=== PATIENT | male | born 1965 | race Caucasian/White ===

== ENCOUNTER 2018-01-27 20:15 | Emergency (ER) | payer OTHER ==
[~2018-01-27] VITALS: Ht 170.2 cm; Wt 85.3 kg
[~2018-01-27 20:15] MED LIST: LIBRIUM25 MG ORAL
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
[2018-01-27 23:20] VITALS: BP 132/78
[2018-01-28 01:20] VITALS: BP 133/81
--- NOTE | 2018-01-28 04:34 | Emergency Room Report ---
History of Present Illness General Chief Complaint: Pain Source: Patient, EMS Present Illness Allergies: Coded Allergies: No Known Allergies (Unverified , 11/27/15) Nursing Documentation-PMH Hx Hypertension: Yes Hx Diabetes: Yes Hx Seizures: Yes Physical Exam Vital Signs Date Time Temp Pulse Resp B/P (MAP) Pulse Ox O2 Delivery O2 Flow Rate FiO2 01/27/18 20:11 97.4 80 16 134/78 98 Room Air 97.3 Medical Decision Making Diagnostic Impression: Primary Impression: Acute alcoholic intoxication ER Course Please refer to the initial note for the history exam and presentation At approximately 4:00 in the morning Patient has awakened and is asking to be let go Patient cursing at the staff and reports that nothing is being done for him Patient however refused his CAT scan of the head X-ray imaging showed multiple previous rib fractures along with clavicular fracture At this time heart rate appropriate patient does not appear tremulous no signs of acute withdrawal symptoms Patient reports that he is going to leave and drink alcohol and has no plans of stopping drinking alcohol Chest X-Ray Diagnostic Results Chest X-Ray Diagnostic Results : Chest X-Ray Ordered: Yes # of Views/Limited/Complete: 1 View EP Interpretation: Yes Interpretation: no consolidation, no effusion, no pneumothorax, other - Multiple previous rib fractures, clavicular fcture Impression: No acute disease Electronically Signed by: Manuel Stahl DO Last Vital Signs Date Time Temp Pulse Resp B/P (MAP) Pulse Ox O2 Delivery O2 Flow Rate FiO2 01/27/18 20:11 97.4 80 16 134/78 98 Room Air 97.3 Status: improved Disposition: HOME, SELF-CARE Condition: Improved [facility]errals: [facility]ERR[facility] (PCP) Additional Instructions: please return to the ER if you change your mind regarding further care and further evaluation Manuel Stahl DO Jan 28, 2018 04:34
[2018-01-28] MEDS: LORazepam 1mg tab ORAL ONE (04:40)
[2018-01-28 04:45] VITALS: BP 133/81
--- NOTE | 2018-01-28 09:08 | Diagnostic Imaging Report ---
Indication: Shortness of breath Technique: One view of the chest Comparison: none Findings: Multiple old left rib fracture deformities are demonstrated. There is a fracture deformity of the right clavicle. The lungs and pleural spaces are clear. The heart size is upper limits of normal. Impression: No acute process
== END 2018-01-28 04:45 | disposition home or self-care (01) ==
LOC: EDBD 20:15 → EMR 22:36
DX: F10.129 Alcohol abuse with intoxication, unspecified (principal); S20.211A Contusion of right front wall of thorax, initial encounter; V09.9XXA Pedestrian injured in unspecified transport accident, initial encounter; Y92.9 Unspecified place or not applicable; E11.9 Type 2 diabetes mellitus without complications; R41.82 Altered mental status, unspecified; I10 Essential (primary) hypertension
CPT/HCPCS: 71045; 99283

== ENCOUNTER 2018-01-28 16:20 | Emergency (ER) | payer OTHER ==
[~2018-01-28] VITALS: Ht 167.6 cm; Wt 72.6 kg
[2018-01-28 19:30] VITALS: BP 120/80
[2018-01-28 21:45] VITALS: BP 126/81
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
[2018-01-28 23:45] VITALS: BP 118/82
[2018-01-29 01:45] VITALS: BP 122/82
[2018-01-29 02:45] VITALS: BP 122/82
== END 2018-01-29 02:45 | disposition home or self-care (01) ==
LOC: EDBD 16:20 → EMR 17:05
DX: F10.129 Alcohol abuse with intoxication, unspecified (principal); I10 Essential (primary) hypertension; E11.9 Type 2 diabetes mellitus without complications
CPT/HCPCS: 99284

== ENCOUNTER 2018-04-03 17:29 | Emergency (ER) | payer OTHER ==
[~2018-04-03] VITALS: Ht 167.6 cm; Wt 65.8 kg
[2018-04-03 17:57] VITALS: BP 112/70
--- NOTE | 2018-04-03 18:11 | Emergency Room Report ---
History of Present Illness General Chief Complaint: Alcohol Intoxication Source: EMS Present Illness HPI Patient presents with altered mental status Patient was brought in by paramedics report that he has had multiple calls today for being found on the ground by bystanders Upon arrival the patient is minimally arousable Patient is brought with significant material including several large bags There was no reports of vomiting at the scene History of present illness is significantly limited Patient has been here previously with alcohol intoxication Allergies: Coded Allergies: No Known Allergies (Unverified , 11/27/15) Patient History Limited by: medical condition Past Medical History: see triage record Pertinent Family History: unable to obtain Reviewed Nursing Documentation: PMH: Agreed; PSxH: Agreed Nursing Documentation-PMH Hx Hypertension: Yes Hx Diabetes: Yes Hx Seizures: Yes Review of Systems All Other Systems: limited - Other than the ones mentioned in the history of present illness all others are reviewed however they do stay limited due to the patient's mental status Physical Exam Vital Signs Date Time Temp Pulse Resp B/P (MAP) Pulse Ox O2 Delivery O2 Flow Rate FiO2 04/03/18 17:24 98.5 100 16 110/71 98 Room Air 98.4 Sp02 EP Interpretation: reviewed, normal General Appearance: no apparent distress - However fairly somnolent Head: normocephalic, atraumatic Eyes: bilateral eye PERRL ENT: normal pharynx, dry mucus membranes Neck: supple Respiratory: lungs clear Cardiovascular #1: regular rate, rhythm Gastrointestinal: soft, no mass Musculoskeletal: other - Patient does not move extremities to command, unable to obtain full exam he does withdrawn minimally to physical stimuli Neurologic: responsive - Minimally to physical stimuli, airway is appropriate maintaining appropriate gag reflex Skin: other - Appears disheveled Lymphatic: no adenopathy Medical Decision Making Diagnostic Impression: Primary Impression: Acute alcoholic intoxication ER Course Upon arrival patient had order for IV hydration and check of baseline blood work Multiple differentials including but not limited to alcohol intoxication, other metabolic abnormalities considered CT head was negative Pending further blood work evaluation and reevaluation I was told by nursing staff patient had walked out of the emergency room And appears to have eloped prior to final disposition CT/MRI/US Diagnostic Results CT/MRI/US Diagnostic Results : Impression CT head no acute disease Last Vital Signs Date Time Temp Pulse Resp B/P (MAP) Pulse Ox O2 Delivery O2 Flow Rate FiO2 04/03/18 17:57 98.4 97 16 112/70 98 Room Air 98.4 Status: improved Disposition: ELOPED Condition: Unknown Referrals: [facility] (PCP) Manuel Stahl DO Apr 03, 2018 18:11
[2018-04-03 19:30] VITALS: BP 138/89
--- NOTE | 2018-04-04 09:17 | Diagnostic Imaging Report ---
Indication: Altered mental status Technique: Contiguous 5 mm thick transaxial imaging of the head obtained in a Siemens Sensation [address] scanner. Soft tissue and bone windows generated. Automatic Exposure Control was utilized. Total Dose length Product (DLP): 1467.[address] Dose Index Volume (CTDIvol): 70.38 mGy Comparison: 11/26/2015 Findings: There is mild prominence of the ventricles, basal cisterns, and cerebral sulci consistent with atrophy. Mild, nonspecific, white matter hypoattenuation is noted throughout the brain consistent with chronic small vessel disease. There is no midline shift, edema, acute hemorrhage, mass effect, or abnormal extra-axial fluid collections. Bones and extra osseous soft tissues are unremarkable. Impression: No acute intracranial bleed, mass effect or edema. Mild atrophy of the brain. Nonspecific white matter hypoattenuation probably due to chronic small vessel disease. The CT scanner at [facility] is accredited by the [employer] and the scans are performed using dose optimization techniques as appropriate to a performed exam including Automatic Exposure control.
== END 2018-04-03 21:30 | disposition home or self-care (01) ==
LOC: EDBD 17:29 → EMR 17:48
DX: F10.129 Alcohol abuse with intoxication, unspecified (principal); R41.82 Altered mental status, unspecified; E11.9 Type 2 diabetes mellitus without complications; I10 Essential (primary) hypertension; Z86.69 Personal history of other diseases of the nervous system and sense organs
CPT/HCPCS: 70450; 96360; 96372; 96374; 96375; 99284

== ENCOUNTER 2019-01-08 15:34 | Emergency (ER) | payer OTHER ==
[~2019-01-08] VITALS: Ht 172.7 cm; Wt 59.0 kg
[2019-01-08] MEDS ORDERED: UNOBMED (15:41)
[2019-01-08 15:45] VITALS: BP 102/67
[2019-01-08] MEDS ORDERED: Thiamine HCl 100 MG in D5W 55 ML IV ONE (15:45)
--- NOTE | 2019-01-08 15:45 | NUR ---
ED Nurse Note: BROUGHT IN BY [address] DUE TO ETOH WITH BOTTLE OF VODKA. BYSTANDER CALLED 911. DRIED BLOOD NOTED ON NOSE AND MOUTH. STITCHES NOTED ON THE BACK OF PT'S HEAD.
--- NOTE | 2019-01-08 15:52 | Emergency Room Report ---
History of Present Illness General Chief Complaint: Alcohol Intoxication Source: Patient, Medical Record, EMS Present Illness HPI Patient presents via EMS. They were called by concerned citizen's because there is alcohol around imaging is less responsive. He is well-known to them for alcohol abuse. They say when they transported him a couple of days ago he also had evidence of blood from his nose and mouth. They deny knowing of any recent trauma at this time. Patient denies seizure activity. His Accu-Chek in the field was normal. Last time he was here was March with a similar presentation. CT the head was done at that time. Allergies: Coded Allergies: No Known Allergies (Unverified , 11/27/15) Patient History Limited by: medical condition Past Medical History: see triage record, old chart reviewed Social History: Reports: alcohol use Reviewed Nursing Documentation: PMH: Agreed; PSxH: Agreed Nursing Documentation-PMH Past Medical History: No History, Except For Hx Hypertension: Yes Hx Diabetes: Yes Hx Seizures: Yes Review of Systems All Other Systems: limited Physical Exam Vital Signs Date Time Temp Pulse Resp B/P (MAP) Pulse Ox O2 Delivery O2 Flow Rate FiO2 01/08/19 15:39 98.2 90 18 102/60 99 Room Air General Appearance: lethargic - But answers questions, other - Disheveled, Chronically Ill Eyes: bilateral eye PERRL, bilateral eye EOMI, bilateral eye Scleral Injection ENT: moist mucus membranes - Poor dentition no lingual macerations Neck: supple, no bony tend Respiratory: chest non-tender, lungs clear Medical Decision Making Medical: Alcohol Abuse Reaction to Intervention: Other - not coherent and unsteady on feet. Not understand risk of attempting to leave Restraint Reassesment Will use sedation instead of physical restraints. Diagnostic Impression: Primary Impression: Acute alcoholic intoxication Qualified Codes: F10.929 - Alcohol use, unspecified with intoxication, unspecified Additional Impression: Nasal fracture Qualified Codes: S02.2XXA - Fracture of nasal bones, initial encounter for closed fracture ER Course Patient presents with alleged acute alcohol intoxication also has evidence of possible maxillofacial trauma. I differential includes brain bleed, seizures which might be withdrawal, left right imbalance amongst others. Evaluation will be with EKG, CT the head, CT maxillofacial bones and labs. The patient will be treated with IV hydration and thiamine. He's placed on a cardiac nurse specialist. Patient not cooperative and not coherent or steady on feet. 17:40. Sedation ordered. Improved with sedation. Still sleepy. Discussed nasal fracture with patient (not sure if understands). Signed out to Dr. Edwards. Laboratory Tests Test 01/08/19 17:15 01/08/19 21:22 White Blood Count 4.2 K/UL (4.8-10.8) L Red Blood Count 3.86 M/UL (4.70-6.10) L Hemoglobin 10.7 G/DL (14.2-18.0) L Hematocrit 32.9 % (42.0-52.0) L Mean Corpuscular Volume 85 FL (80-99) Mean Corpuscular Hemoglobin 27.7 PG (27.0-31.0) Mean Corpuscular Hemoglobin Concent 32.5 G/DL (32.0-36.0) Red Cell Distribution Width 15.8 % (11.6-14.8) H Platelet Count 195 K/UL (150-450) Mean Platelet Volume 4.7 FL (6.5-10.1) L Neutrophils (%) (Auto) 48.5 % (45.0-75.0) Lymphocytes (%) (Auto) 41.0 % (20.0-45.0) Monocytes (%) (Auto) 6.2 % (1.0-10.0) Eosinophils (%) (Auto) 1.1 % (0.0-3.0) Basophils (%) (Auto) 3.2 % (0.0-2.0) H Sodium Level 138 MMOL/L (136-145) Potassium Level 4.1 MMOL/L (3.5-5.1) Chloride Level 105 MMOL/L (98-107) Carbon Dioxide Level 21 MMOL/L (21-32) Anion Gap 12 mmol/L (5-15) Blood Urea Nitrogen 7 mg/dL (7-18) Creatinine 0.6 MG/DL (0.55-1.30) Estimate Glomerular Filtration Rate > 60 mL/min (>60) Glucose Level 81 MG/DL (74-106) Calcium Level 8.5 MG/DL (8.5-10.1) Magnesium Level 1.6 MG/DL (1.8-2.4) L Total Bilirubin 0.7 MG/DL (0.2-1.0) Aspartate Amino Transferase (AST) 90 U/L (15-37) H Alanine Aminotransferase (ALT) 49 U/L (12-78) Alkaline Phosphatase 158 U/L (46-116) H Total Creatine Kinase 102 U/L (26-308) Total Protein 7.5 G/DL (6.4-8.2) Albumin 3.1 G/DL (3.4-5.0) L Globulin 4.4 g/dL Albumin/Globulin Ratio 0.7 (1.0-2.7) L Lipase 148 U/L (73-393) Salicylates Level < 0.2 ug/mL (2.8-20) L Acetaminophen Level < 2 MCG/ML (10-30) L Serum Alcohol 321 mg/dL Urine Color Pale yellow Urine Appearance Clear Urine pH 7 (4.5-8.0) Urine Specific Bear 1.010 (1.005-1.035) Urine Protein Negative (NEGATIVE) Urine Glucose (UA) Negative (NEGATIVE) Urine Ketones Negative (NEGATIVE) Urine Blood Negative (NEGATIVE) Urine Nitrite Negative (NEGATIVE) Urine Bilirubin Negative (NEGATIVE) Urine Urobilinogen Normal MG/DL (0.0-1.0) Urine Leukocyte Esterase Negative (NEGATIVE) Urine Opiates Screen Negative (NEGATIVE) Urine Barbiturates Screen Negative (NEGATIVE) Phencyclidine (PCP) Screen Negative (NEGATIVE) Urine Amphetamines Screen Negative (NEGATIVE) Urine Benzodiazepines Screen Positive (NEGATIVE) H Urine Cocaine Screen Negative (NEGATIVE) Urine Marijuana (THC) Screen Negative (NEGATIVE) EKG Diagnostic Results Rate: normal Rhythm: NSR ST Segments: no acute changes Rhythm Strip Diag. Results EP Interpretation: yes Rhythm: NSR, no PVC's, no ectopy Chest X-Ray Diagnostic Results Chest X-Ray Diagnostic Results : Chest X-Ray Ordered: Yes # of Views/Limited/Complete: 1 View Indication: Other EP Interpretation: Yes Interpretation: no consolidation, no effusion, no pneumothorax, other - old fractures L Impression: Other Electronically Signed by: Electronically signed by Can Juan MD CT/MRI/US Diagnostic Results CT/MRI/US Diagnostic Results #1: Imaging Test Ordered: Maxillofacial Impression nasal fracture, old right maxillary fracture and left mandible fracture CT/MRI/US Diagnostic Results #2: Imaging Test Ordered: head Impression parietal wound no IC acute pathology Last Vital Signs Date Time Temp Pulse Resp B/P (MAP) Pulse Ox O2 Delivery O2 Flow Rate FiO2 01/09/19 03:30 98.5 69 15 120/78 98 Room Air Status: improved Disposition: HOME, SELF-CARE Condition: Improved Scripts Acetaminophen (Tylenol) 325 Mg Tablet 650 MG ORAL Q6H PRN for Prn Pain/Headache/Temp > 101, #20 TAB 0 Refills Prov: Can Juan MD 01/08/19 Can Juan MD Jan 08, 2019 15:52
--- NOTE | 2019-01-08 16:54 | NUR ---
ED Nurse Note: Multiple RNs attempted to insert IVs. RN unable to establish IV at this time. distribution tech contacted for blood draw.
--- NOTE | 2019-01-08 17:07 | Diagnostic Imaging Report ---
Indication: Chest pain Technique: One view of the chest Comparison: 01/27/2018 Findings: Multiple old left rib fracture deformities and right clavicular fracture deformity again noted. Lungs and pleural spaces are clear. The heart size is upper limits of normal. No significant interim change Impression: No acute process
--- NOTE | 2019-01-08 17:19 | NUR ---
ED Nurse Note: RN attempted to start IV using vein finder, unsuccessful at this time. Dr. Juan notified and aware. costume technician at bedside drawing blood. Security guards at bedside.
--- NOTE | 2019-01-08 17:20 | Diagnostic Imaging Report ---
Indications: Facial trauma, pain Technique: Spiral images obtained through the facial bones. No IV contrast utilized. Multiplanar reconstructions were generated.Total dose length product 1987 mGycm. CTDIvol(s) 70, 28 mGy. Dose reduction achieved using automated exposure control Comparison: none Findings: Surgical hardware is seen reducing old healed fracture of the junction of the right side of the nasal bone and the maxilla. There is a depressed fracture deformity of the nasal bone, acuity of which is indeterminate given the above findings. There is sigmoid deviation of the nasal septum without definite fracture. No other evidence of acute fracture or dislocation. There is minimal bilateral maxillary sinus mucosal thickening. No worrisome maxillary sinus opacification is demonstrated. There is also some mucosal disease involving the ethmoid air cells. There is also surgical hardware seen reducing old healed left mandibular ramus fracture. The optic globes are intact. The visualized intracranial structures are unremarkable. There is evidence of multiple dental caries Impression: Acuity indeterminate fracture of the nasal bone. Correlate with clinical history and findings Evidence of prior surgical repair of the right maxilla and left mandible No other acute bony trauma Fairly extensive dental disease incidentally noted The CT scanner at [facility] is accredited by the [employer] and the scans are performed using protocols designed to limit radiation exposure to as low as reasonably achievable to attain images of sufficient resolution adequate for diagnostic evaluation.
--- NOTE | 2019-01-08 17:20 | NUR ---
ED Nurse Note: ERMD MADE AWARE OF PT NOT HAVING IV ACCESS. PER ERMD THAT IT IS OK TO HAVE NO IV ACCESS. PT IS RESISTING FOR CARE. EDUCATED PT THAT NO CT RESULT YET SO HE IS NOT ABLE TO EAT AT THIS TIME. REINFORCEMENT NEEDED.
--- NOTE | 2019-01-08 17:22 | Diagnostic Imaging Report ---
Indications: Altered mental status, history of trauma, now: Views Technique: Spiral acquisitions obtained through the brain. Angled axial and coronal 5 x 5 mm slices were reconstructed. Total dose length product 1987.82 mGycm. CTDI vol(s) 70.38,28.19 mGy. Dose reduction achieved using automated exposure control Comparison: 04/03/2018 Findings: There is a high midline parietal scalp soft tissue contusion, not evident previously. There is mild prominence of the ventricles and extra axial CSF spaces. No acute intracranial hemorrhage nor edema, mass effect, nor midline shift. Normal edwards-white differentiation. The calvarium is intact. There is minimal ethmoid and sphenoid mucosal thickening. Surgical hardware is seen in the left mandibular neck. Impression: Evidence of high parietal scalp soft tissue trauma Negative for acute intracranial bleed or mass effect Mild cerebral volume loss, out of proportion to age The CT scanner at [facility] is accredited by the [employer] and the scans are performed using protocols designed to limit radiation exposure to as low as reasonably achievable to attain images of sufficient resolution adequate for diagnostic evaluation.
[2019-01-08 17:36] LABS: BASOPHILS % (AUTO) 3.2 % (0.0-2.0); EOSINOPHILS % (AUTO) 1.1 % (0.0-3.0); HEMATOCRIT 32.9 % (42.0-52.0); HEMOGLOBIN 10.7 G/DL (14.2-18.0); MEAN CORPUSCULAR VOLUME 85 FL (80-99); MONOCYTES % (AUTO) 6.2 % (1.0-10.0); NEUTROPHILS % (AUTO) 48.5 % (45.0-75.0); PLATELET COUNT 195 K/UL (150-450); RED BLOOD COUNT 3.86 M/UL (4.70-6.10); RED CELL DISTRIBUTION WIDTH 15.8 % (11.6-14.8); WHITE BLOOD COUNT 4.2 K/UL (4.8-10.8)
[2019-01-08 17:45] VITALS: BP 110/68
[2019-01-08] MEDS ORDERED: DiphenhydrAMINE 50mg/ml Inj IM ONE (17:45)
[2019-01-08] MEDS ORDERED: Haloperidol 5mg/ml Inj IM ONE (17:45)
[2019-01-08 17:47] LABS: ANION GAP 12 mmol/L (5-15); BLOOD UREA NITROGEN 7 mg/dL (7-18); CALCIUM 8.5 MG/DL (8.5-10.1); CARBON DIOXIDE 21 MMOL/L (21-32); CHLORIDE 105 MMOL/L (98-107); CREATININE 0.6 MG/DL (0.55-1.30); POTASSIUM 4.1 MMOL/L (3.5-5.1); SODIUM 138 MMOL/L (136-145)
--- NOTE | 2019-01-08 17:50 | NUR ---
ED Nurse Note: PT RESIST FOR CARE AND BECAME COMBATIVE. ERMD AWARE. SECURITY AT THE BEDSIDE. NEW ORDERS RECEIVED FROM ERMD. WILL FOLLOW UP.
[2019-01-08 17:52] LABS: ALANINE AMINOTRANSFERASE 49 U/L (12-78); ALBUMIN 3.1 G/DL (3.4-5.0); ALBUMIN/GLOBULIN RATIO 0.7 (1.0-2.7); ALKALINE PHOSPHATASE 158 U/L (46-116); ASPARTATE AMINO TRANSFERASE 90 U/L (15-37); BILIRUBIN,TOTAL 0.7 MG/DL (0.2-1.0); CREATINE KINASE 102 U/L (26-308)
[2019-01-08] MEDS ORDERED: Thiamine HCl 100mg/ml 2 ml Inj IM STA (18:22)
--- NOTE | 2019-01-08 18:39 | NUR ---
HAND-OFF: Report given to DUNG WELCH. PT IS SLEEPING IN [facility]
[2019-01-08 19:20] VITALS: BP 111/75
--- NOTE | 2019-01-08 19:57 | NUR ---
HAND-OFF: Report given to DUNG Rodriguez. pt is sleeping in bed in stable condition.
[2019-01-08 21:20] VITALS: BP 115/80
[2019-01-08 21:40] LABS: APPEARANCE,URINE CLEAR; BILIRUBIN, URINE NEGATIVE (NEGATIVE); COLOR,URINE PALE YELLOW; GLUCOSE, URINE (UA) NEGATIVE (NEGATIVE); KETONES,URINE NEGATIVE (NEGATIVE); LEUKOCYTE ESTERASE ,URINE NEGATIVE (NEGATIVE); NITRITE,URINE NEGATIVE (NEGATIVE); PH,URINE 7 (4.5-8.0); PROTEIN,URINE NEGATIVE (NEGATIVE); UROBILINOGEN,URINE NORMAL MG/DL (0.0-1.0)
[2019-01-08] MEDS ORDERED: TYLENOL325 MG ORAL (22:33)
[2019-01-08 22:59] VITALS: BP 120/86
[2019-01-09 00:58] VITALS: BP 121/88
[2019-01-09] MEDS ORDERED: LORazepam 1mg tab ORAL ONE (01:45)
[2019-01-09] MEDS ORDERED: LORazepam Inj 2mg/ml 1ml IM ONE (02:00)
[2019-01-09 02:30] VITALS: BP 118/79
[2019-01-09 03:30] VITALS: BP_SYST 120; BP_DIAS 74; BP_DIAS 78
--- NOTE | 2019-01-09 03:30 | NUR ---
Homeless Discharge: Patient is being discharged from medical care. Awake, alert and oriented x3. After care instructions, including referral to community resources were given. Patient verbalized understanding of After care instructions; at this time patient does not request medications, equipment or placement. Patient signed patient consent in the medical record for patient destination upon discharge. All medical devices such as IV and ID band were removed. Patient ambulated out with all personal belongings with steady gait.
== END 2019-01-09 03:30 | disposition home or self-care (01) ==
LOC: EDBD 15:34 → EMR 16:00
DX: F10.129 Alcohol abuse with intoxication, unspecified (principal); S02.2XXA Fracture of nasal bones, initial encounter for closed fracture; X58.XXXA Exposure to other specified factors, initial encounter; Y92.9 Unspecified place or not applicable; K02.9 Dental caries, unspecified; I10 Essential (primary) hypertension; E11.9 Type 2 diabetes mellitus without complications
CPT/HCPCS: 36415; 70450; 70486; 71045; 80053; 80307; 80329; 81003; 82550; 83690; 83735; 85025; 93005; 96361; 96365; 96372; 99284; J1200; J1630

== ENCOUNTER 2019-10-31 21:06 | Emergency (ER) | payer OTHER ==
[~2019-10-31] VITALS: Ht 180.3 cm; Wt 77.1 kg
[~2019-10-31 21:06] MED LIST changes: +TYLENOL325 MG ORAL; +UNOBMED
--- NOTE | 2019-10-31 21:08 | Emergency Room Report ---
History of Present Illness General Chief Complaint: Alcohol Intoxication Source: EMS Present Illness HPI 54-year-old male history is limited due to current intoxication, patient was outside of a liquor store, he was sleeping in the bushes surrounded by alcohol, patient is refusing to answer questions, Patient attempts to cover himself with blanket. No known start date, no known aggravating or alleviating factors, severity is moderate, constant, characterization is intoxication. Allergies: Coded Allergies: UNABLE TO ASSESS (Unverified , 10/31/19) Patient History Limited by: medical condition - Currently intoxicated Past Medical History: see triage record Reviewed Nursing Documentation: PMH: Agreed; PSxH: Agreed Nursing Documentation-PMH Past Medical History Deferred: Patient Unconscious Past Medical History: Deferred Review of Systems All Other Systems: limited - currently intoxicated Physical Exam Vital Signs Date Time Temp Pulse Resp B/P (MAP) Pulse Ox O2 Delivery O2 Flow Rate FiO2 10/31/19 21:01 97.9 72 22 155/84 (107) 99 Room Air Sp02 EP Interpretation: reviewed, normal General Appearance: no apparent distress, alert Head: normocephalic, atraumatic Eyes: bilateral eye PERRL, bilateral eye EOMI ENT: uvula midline, moist mucus membranes Neck: supple, thyroid normal, supple/symm/no masses Respiratory: lungs clear, no respiratory distress, no retraction, no accessory muscle use Cardiovascular #1: normal peripheral pulses, regular rate, rhythm, no edema, no gallop, no murmur Gastrointestinal: non tender, soft, no guarding, no rebound Musculoskeletal: normal inspection Neurologic: alert, responsive Psychiatric: mood/affect normal Skin: no rash, warm/dry Medical Decision Making Homeless Attestation I, The treating physician Dr. Blackman, have assessed and agrees that patient is medically stable for discharge to an outpatient disposition. Diagnostic Impression: Primary Impression: Acute alcoholic intoxication Qualified Codes: F10.920 - Alcohol use, unspecified with intoxication, uncomplicated ER Course 54-year-old male presents with acute alcohol intoxication, will wait for him to sober, CT scan of the head shows no acute processes Reevaluation 6:03 AM, patient is sober talkative and normal gait CT/MRI/US Diagnostic Results CT/MRI/US Diagnostic Results : Impression Preliminary Findings Only See Final Report For Complete Findings CT HEAD: No acute intracranial process. Opacification of left mastoid air cells. Old facial trauma and fixation hardware. Radiologist: Tereza Wang M.D. Study ready at 23:06 and initial results transmitted at 23:16 Last Vital Signs Date Time Temp Pulse Resp B/P (MAP) Pulse Ox O2 Delivery O2 Flow Rate FiO2 10/31/19 21:01 97.9 72 22 155/84 (107) 99 Room Air Disposition: HOME, SELF-CARE Condition: Stable Scripts Unable to Obtain Active Prescriptions or Reported Meds Referrals: [facility]. [facility] Patient Instructions: Alcohol Intoxication, [id number], Alcohol Use Disorder Additional Instructions: The patient was provided with discharge instructions, notified to follow-up with a primary care doctor and or specialist in the next 24-48 hours, and to return to the ED if they have worsening of their symptoms. Please note that this report is being documented using [employer] technology. This can lead to erroneous entry secondary to incorrect interpretation by the dictating instrument. Finn Blackman MD Oct 31, 2019 21:08
[2019-10-31 22:01] VITALS: BP 155/84
--- NOTE | 2019-10-31 22:01 | NUR ---
ER Nurse Note: Pt brought in by ambulance c/o ETOH abuse. Pt unable to recall events. Pt is poor historian; responds to deep pain. Pt asleep, no signs of distress, RA, chest rise and fall noted. Pt does not show signs of pain, no n/v/d. All safety measures met; will continue to montior.
[2019-11-01 01:34] VITALS: BP 146/80
--- NOTE | 2019-11-01 01:35 | NUR ---
ER Nurse Note: Pt asleep, no signs of distress, RA, chest rise and fall noted. Pt does not show signs of pain, no n/v/d. All safety measures met; will continue to montior.
--- NOTE | 2019-11-01 04:00 | NUR ---
ER Nurse Note: Pt arousable with pain. Pt able to answer questions, VSS, no signs of distress. Pt yelling but directable. Pt not ready for discharge at this point. All safety measures met; will conitnue to indra.
[2019-11-01 06:00] VITALS: BP 150/74
--- NOTE | 2019-11-01 06:00 | NUR ---
ER Homeless Discharge: Patient is being discharged from medical care. Awake, alert and oriented x3. After care instructions, including referral to community resources were given. Patient verbalized understanding of After care instructions; at this time patient does not request medications, equipment or placement. Patient signed patient consent in the medical record for patient destination upon discharge. Pt refused to disclose location after discharge. All medical devices such as ID band were removed. Patient ambulated out with all personal belongings with steady gait.
== END 2019-11-01 06:00 | disposition home or self-care (01) ==
LOC: EDBD 21:06 → EMR 23:41 → MERGE 23:41 → EDBD 23:41 → EMR 11-01 06:00
DX: F10.129 Alcohol abuse with intoxication, unspecified (principal)
CPT/HCPCS: 70450; Z7502; 99284

== ENCOUNTER 2019-11-01 14:03 | Emergency (ER) | payer OTHER ==
[~2019-11-01] VITALS: Ht 172.7 cm; Wt 72.6 kg
--- NOTE | 2019-11-01 14:11 | Emergency Room Report ---
History of Present Illness General Chief Complaint: Altered mental status Source: EMS (Rahul Newman MD) Present Illness HPI Disclaimer: Please note that this report is being documented using [employer] technology. This can lead to erroneous entry secondary to incorrect interpretation by the dictating instrument. HPI: Virgil Allen brought in by EMS for altered mental status. Unknown age, no identification found on patient. Unknown previous history. Patient arrives with old EKG stickers attached to his body as well as a bandage over the right side of the neck. Appears he has had a recent hospital admission. He was found sitting outside a grocery store altered confused. Moaning incoherently but no active conversation. Was moving all extremities. No signs of trauma. He is somnolent but arousable to painful stimuli. EMS reports he was found with multiple empty bottles of alcohol next to them. PMH: Unknown PSH: Unknown Allergies: Unknown Social Hx: Unknown (Rahul Newman MD) Allergies: Coded Allergies: UNABLE TO ASSESS (Unverified , 11/01/19) Review of Systems All Other Systems: limited - Cannot obtain from patient due to clinical condition (Rahul Newman MD) Physical Exam Vital Signs Date Time Temp Pulse Resp B/P (MAP) Pulse Ox O2 Delivery O2 Flow Rate FiO2 11/01/19 14:07 97.5 95 16 112/75 (87) 99 Room Air General: Somnolent but arousable. No acute distress. Disheveled. HEENT: NC/AT. No scalp or face hematoma, lacerations or abrasions. EOMI. PERRLA. Pupils are 4 mm and reactive. Dry mucous membranes. Very poor dentition. Neck: Supple, trachea midline Chest Wall: No tenderness, no deformity. Old EKG stickers on his chest Cardiovascular: RRR. S1 and S2 normal. No murmur appreciated Resp: Normal work of breathing. No cough, wheezing or crackles appreciated Abdomen: Abdomen is soft, nondistended. Nontender Skin: Intact. No abrasions, laceration or rash over the exposed skin MSK: Normal tone and bulk. Moving all extremities. No obvious deformity. Neuro: Somnolent, arousable. GCS 9. E2, V2, M5. Moving all extremities. (Rahul Newman MD) Medical Decision Making Diagnostic Impression: Primary Impression: Alcohol intoxication Additional Impressions: Microscopic hematuria Pancytopenia ER Course Virgil Allen and of unknown age and unknown medical history presents for evaluation of altered mental status. Differential includes was not limited to intoxication , substance abuse, dehydration, electrolyte abnormality, occult head injury, infectious pathology, metabolic abnormality. Start broad metabolic, infectious and toxicologic work-up. Will send for CT scan of the head to rule out occult injury. Start IV fluids. Patient be monitored in the emergency department closely. (Rahul Newman MD) ER Course Patient was signed out to me. Reevaluation 12:14 AM, patient woke up felt better started cursing at the staff stating he wants to leave Started saying" Fuck you I need my shirt" " fuck you" Patient stable gait can be discharged safely home counseled patient about alcohol use (Finn Blackman MD) EKG Diagnostic Results EKG Time: 14:15 Rate: normal Rhythm: NSR ST Segments: no acute changes Other Impression Sinus rhythm, normal axis, normal intervals, no ST segment changes. (Rahul Newman MD) Rhythm Strip Diag. Results Rhythm Strip Time: 14:15 EP Interpretation: yes Rate: 90 Rhythm: NSR, no PVC's, no ectopy (Rahul Newman MD) CT/MRI/US Diagnostic Results CT/MRI/US Diagnostic Results : Impression Preliminary Findings Only See Final Report For Complete Findings CT HEAD Without Contrast: No acute intracranial findings. No evidence of acute intracranial hemorrhage, mass effect, or midline shift. Fluid opacification of the left mastoid air cells, suggesting a mastoid effusion. Right mastoid air cells are clear. Visualized paranasal sinuses are clear. Radiologist: Eren Tidwell MD (Rahul Newman MD) Reevaluation Time: 17:[address] does not find any acute mass, bleed or other signs of acute injury. Labs show significantly elevated alcohol level greater than 500. He will be allowed to metabolize. Also positive for benzodiazepines. Otherwise labs show microscopic hematuria, pancytopenia and elevated liver enzymes. No prior visits for comparison. Will reevaluate after clinically sober. (Rahul Newman MD) Disposition: HOME, SELF-CARE Condition: Stable Scripts Folic Acid* (FOLIC ACID*) 1 Mg Tablet 1 MG ORAL DAILY for 30 Days, #30 TAB Prov: Rahul Newman MD 11/01/19 Thiamine Hcl* (VITAMIN B-1*) 100 Mg Tablet 100 MG ORAL DAILY, #30 TAB 0 Refills Prov: Rahul Newman MD 11/01/19 Referrals: [facility] Patient Instructions: Alcohol Intoxication, [id number], Alcohol Use Disorder Additional Instructions: The patient was provided with discharge instructions, notified to follow-up with a primary care doctor and or specialist in the next 24-48 hours, and to return to the ED if they have worsening of their symptoms. Please note that this report is being documented using [employer] technology. This can lead to erroneous entry secondary to incorrect interpretation by the dictating instrument. Rahul Newman MD Nov 01, 2019 14:11 Finn Blackman MD Nov 02, 2019 00:15
--- NOTE | 2019-11-01 14:15 | NUR ---
Jas clark in EDM - 11/01/19 at 1428 by ECTOR ED Note: PT EMETERIO TO CT VIA OLVIN.
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
--- NOTE | 2019-11-01 14:20 | NUR ---
ED Nurse Note: PT TAKEN TO CT VIA OLVIN.
[2019-11-01 15:15] VITALS: BP 103/67
--- NOTE | 2019-11-01 15:33 | Diagnostic Imaging Report ---
Indications: Altered level of consciousness Technique: Spiral acquisitions obtained through the brain. Angled axial and coronal 5 x 5 mm slices were reconstructed. Total dose length product 1520 mGycm. CTDI vol(s) 62 mGy. Dose reduction achieved using automated exposure control Comparison: None. Findings: There is mild age-related enlargement of the ventricles and extra-axial CSF spaces. There is mild periventricular deep white matter low-attenuation. There is a tiny lacunar infarct in the anterior limb of the right internal capsule. No acute intracranial hemorrhage or edema. No mass effect nor midline shift. Intact calvarium. There is minimal maxillary sinus mucosal disease. There is considerable left mastoid opacification. Impression: Chronic and age-related changes Left mastoid disease Negative for acute intracranial bleed or mass effect This agrees with the preliminary interpretation provided overnight by [facility] telerad[facility] service. The CT scanner at [facility] is accredited by the [employer] and the scans are performed using protocols designed to limit radiation exposure to as low as reasonably achievable to attain images of sufficient resolution adequate for diagnostic evaluation.
[2019-11-01 15:54] LABS: HEMATOCRIT 36.3 % (42.0-52.0); HEMOGLOBIN 11.6 G/DL (14.2-18.0); MEAN CORPUSCULAR VOLUME 87 FL (80-99); PLATELET COUNT 50 K/UL (150-450); RED BLOOD COUNT 4.16 M/UL (4.70-6.10); RED CELL DISTRIBUTION WIDTH 17.1 % (11.6-14.8); WHITE BLOOD COUNT 2.6 K/UL (4.8-10.8)
[2019-11-01 16:14] LABS: BILIRUBIN, URINE NEGATIVE (NEGATIVE); GLUCOSE, URINE (UA) NEGATIVE (NEGATIVE); KETONES,URINE NEGATIVE (NEGATIVE); LEUKOCYTE ESTERASE ,URINE NEGATIVE (NEGATIVE); NITRITE,URINE NEGATIVE (NEGATIVE); PH,URINE 6 (4.5-8.0); PROTEIN,URINE 1+ (NEGATIVE); UROBILINOGEN,URINE NORMAL MG/DL (0.0-1.0)
[2019-11-01 16:18] LABS: ANION GAP 13 mmol/L (5-15); BLOOD UREA NITROGEN 6 mg/dL (7-18); CALCIUM 7.6 MG/DL (8.5-10.1); CARBON DIOXIDE 25 MMOL/L (21-32); CHLORIDE 108 MMOL/L (98-107); CREATININE 0.7 MG/DL (0.55-1.30); POTASSIUM 3.8 MMOL/L (3.5-5.1); SODIUM 146 MMOL/L (136-145)
[2019-11-01 16:22] LABS: APPEARANCE,URINE SLIGHTLY CLOUDY; COLOR,URINE YELLOW
[2019-11-01 16:24] LABS: ALANINE AMINOTRANSFERASE 72 U/L (12-78); ALBUMIN 3.3 G/DL (3.4-5.0); ALBUMIN/GLOBULIN RATIO 0.6 (1.0-2.7); ALKALINE PHOSPHATASE 175 U/L (46-116); ASPARTATE AMINO TRANSFERASE 147 U/L (15-37); BILIRUBIN,TOTAL 0.7 MG/DL (0.2-1.0)
[2019-11-01 17:00] VITALS: BP 115/70
--- NOTE | 2019-11-01 18:33 | NUR ---
ED Nurse Note: IV ACCESS INFILTRATED. RN TIRED MULTIPLE TIMES TO GET ANOTHER IV ACCESS BUT UNSUCCESFUL. DR DONATO NOTIFIED.
--- NOTE | 2019-11-01 18:39 | NUR ---
ED Nurse Note: PT SLEEPING AND SNORING AT THIS TIME. NO ACUTE DISTRESS NOTED.
[2019-11-01 19:00] VITALS: BP 110/70
--- NOTE | 2019-11-01 19:13 | NUR ---
HAND-OFF: Report given to ELINA ACOSTA RN.
--- NOTE | 2019-11-01 19:15 | NUR ---
ED Nurse Note: RECEIVED REPORT FROM ANETTE RAZO. PT SLEEPING, VSS, NAD. WILL CONTINUE TO MONITOR PT.
[2019-11-01] MEDS ORDERED: VITAMIN B-1100 MG ORAL (22:06)
[2019-11-01] MEDS ORDERED: FOLIC ACID1 MG ORAL (22:06)
--- NOTE | 2019-11-01 22:30 | NUR ---
ED Nurse Note: PT SLEEPING, NAD, VSS.
[2019-11-02 00:15] VITALS: BP 125/62
--- NOTE | 2019-11-02 00:15 | NUR ---
Homeless Discharge: Patient is being discharged from medical care. Awake, alert and oriented x3. After care instructions, including referral to community resources were given but refused. After care instructions; patient refused equipment or placement. Patient refused to sign patient consent. All medical devices such as IV and ID band were removed. Patient ambulated out with all personal belongings with steady gait.
[2019-11-09] MEDS ORDERED: PROTONIX40 MG ORAL (10:17)
[2019-11-09] MEDS ORDERED: ACETAMINOPHEN500 M3 ORAL (10:18)
== END 2019-11-02 00:15 | disposition home or self-care (01) ==
LOC: EDBD 14:03 → EMR 14:19 → MERGE 14:19 → EMR 11-02 00:15
DX: F10.129 Alcohol abuse with intoxication, unspecified (principal); R31.9 Hematuria, unspecified; D61.818 Other pancytopenia
CPT/HCPCS: 36415; 70450; 80053; 80307; 81003; 82962; 85007; 85025; 93005; 96360; 96361; G0480; G0481; J7030; Z7502; 99284

== ENCOUNTER 2019-11-02 04:50 | Emergency (ER) | payer OTHER ==
[~2019-11-02] VITALS: Ht 175.3 cm; Wt 68.0 kg
--- NOTE | 2019-11-02 04:53 | Emergency Room Report ---
History of Present Illness General Chief Complaint: Alcohol Intoxication Source: Patient, EMS Present Illness HPI 54-year-old male history of alcohol abuse patient was seen a few hours earlier patient was yelling slurs at staff, patient states that he drank some wine before coming in he was brought in from a convenience store where he was found to have alcohol, he presents acutely intoxicated again, intoxication is aggravated by drinking alleviated by not drinking severity is moderate, intermittent patient presents for evaluation Allergies: Coded Allergies: No Known Allergies (Unverified , 11/02/19) UNABLE TO ASSESS (Unverified , 10/31/19) Patient History Past Medical History: see triage record Social History: Reports: alcohol use Reviewed Nursing Documentation: PMH: Agreed; PSxH: Agreed Review of Systems All Other Systems: negative except mentioned in HPI Physical Exam Vital Signs Date Time Temp Pulse Resp B/P (MAP) Pulse Ox O2 Delivery O2 Flow Rate FiO2 11/02/19 04:47 97.9 100 15 140/ 98 Room Air Sp02 EP Interpretation: reviewed, normal General Appearance: well appearing, no apparent distress, alert Head: normocephalic, atraumatic Eyes: bilateral eye PERRL, bilateral eye EOMI ENT: uvula midline, moist mucus membranes Neck: supple, thyroid normal, supple/symm/no masses Respiratory: lungs clear, no respiratory distress, no retraction, no accessory muscle use Cardiovascular #1: normal peripheral pulses, regular rate, rhythm, no edema, no gallop, no murmur Gastrointestinal: non tender, soft, no guarding, no rebound Musculoskeletal: normal inspection Neurologic: alert, oriented x3 Psychiatric: mood/affect normal Skin: no rash, warm/dry Medical Decision Making Diagnostic Impression: Primary Impression: Acute alcoholic intoxication Qualified Codes: F10.920 - Alcohol use, unspecified with intoxication, uncomplicated ER Course 54-year-old male presents with acute alcohol intoxication, no acute medical emergencies at this time, patient is stable. Patient able to ambulate without assistance Disposition home with return precautions Last Vital Signs Date Time Temp Pulse Resp B/P (MAP) Pulse Ox O2 Delivery O2 Flow Rate FiO2 11/02/19 04:47 97.9 100 15 140/ 98 Room Air Disposition: HOME, SELF-CARE Condition: Stable Scripts Unable to Obtain Active Prescriptions or Reported Meds Referrals: [facility]. [facility] Patient Instructions: Alcohol Intoxication, [id number], Alcohol Use Disorder Additional Instructions: The patient was provided with discharge instructions, notified to follow-up with a primary care doctor and or specialist in the next 24-48 hours, and to return to the ED if they have worsening of their symptoms. Please note that this report is being documented using [employer] technology. This can lead to erroneous entry secondary to incorrect interpretation by the dictating instrument. ALCOHOL ABUSE WILL KILL YOU Finn Blackman MD Nov 02, 2019 04:53
[2019-11-02 04:55] VITALS: BP 140/76
--- NOTE | 2019-11-02 04:55 | NUR ---
ED Nurse Note: Pt brought in by HENRY RA [address] c/o etoh. Pt is aaox4, ambulatory, speaking in full sentences. No cardiac or respiratory distress noted. Per HENRY, pt was found inside 711.
[2019-11-02 05:15] VITALS: BP 140/76
--- NOTE | 2019-11-02 05:15 | NUR ---
ER DISCHARGE NOTE: Patient is cleared to be discharged per ERMD, pt is aox4, on room air, with stable vital signs. pt was given dc instructions, pt was able to verbalize understanding, pt id band removed, pt is able to ambulate with steady gait. pt took all belongings.
== END 2019-11-02 05:15 | disposition home or self-care (01) ==
LOC: EDBD 04:50 → MERGE 05:01 → EMR 05:01
DX: F10.129 Alcohol abuse with intoxication, unspecified (principal)
CPT/HCPCS: 99281

== ENCOUNTER 2019-11-12 00:30 | Emergency (ER) | payer OTHER ==
[~2019-11-12] VITALS: Ht 167.6 cm; Wt 72.6 kg
[~2019-11-12 00:30] MED LIST changes: +ACETAMINOPHEN500 M3 ORAL; +FOLIC ACID1 MG ORAL; +PROTONIX40 MG ORAL; +VITAMIN B-1100 MG ORAL
[2019-11-12 00:36] VITALS: BP 120/84
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
--- NOTE | 2019-11-12 01:45 | NUR ---
ED Nurse Note: multiple staff have tried to insert IV on patient, unable to get blood. notified and aware
[2019-11-12 04:20] VITALS: BP 128/76
--- NOTE | 2019-11-12 04:21 | NUR ---
ED Nurse Note: PT IS SLEEPING. VSS, NAD. WILL CONTINUE TO MONITOR PATIENT.
--- NOTE | 2019-11-12 05:10 | NUR ---
ER DISCHARGE NOTE: Patient is cleared to be discharged per ERMD, pt is aox4, on room air, with stable vital signs. pt was given dc , pt id band removed without complications. pt is able to ambulate with steady gait. pt took all belongings. provided patient with nourishment. pt refused to disclose location. pt refused to sign discharge/homeless paper.
[2019-11-12 05:13] VITALS: BP 131/62
[2019-11-13] MEDS ORDERED: NAPROXEN250 MG ORAL (06:25)
== END 2019-11-12 05:10 | disposition home or self-care (01) ==
LOC: EDBD 00:30 → EMR 00:42
DX: F10.129 Alcohol abuse with intoxication, unspecified (principal); I10 Essential (primary) hypertension; E11.9 Type 2 diabetes mellitus without complications; G40.909 Epilepsy, unspecified, not intractable, without status epilepticus; Y90.8 Blood alcohol level of 240 mg/100 ml or more
CPT/HCPCS: 99282

== ENCOUNTER 2019-11-13 06:08 | Emergency (ER) | payer OTHER ==
[~2019-11-13] VITALS: Ht 170.2 cm; Wt 74.8 kg
--- NOTE | 2019-11-13 06:15 | NUR ---
ED Nurse Note: Pt walked into ED from waiting room for c/o bilat knee pain onset "a long time ago". Pt is aaox4, no cardiac or respiratory distress noted, ambulatory with steady gait. Pt was DC from ED approx 30 min ago for etoh intoxication and same pain complaint. No acute distress noted.
[2019-11-13] MEDS ORDERED: NAPROXEN250 MG ORAL (06:25)
--- NOTE | 2019-11-13 06:25 | Emergency Room Report ---
History of Present Illness General Chief Complaint: Lower Extremity Injury Source: Patient Present Illness HPI 54-year-old male past medical history of chronic knee pain times years presents requesting for knee surgery, patient reports achy knee pain worsened with weather worsened with movement alleviated with rest severity is mild intermittent has been ongoing for years no acute changes over the past 24 to 48 hours patient presents for evaluation Allergies: Coded Allergies: No Known Allergies (Unverified , 11/27/15) Patient History Past Medical History: see triage record Social History: Reports: alcohol use - Alcohol abuse Reviewed Nursing Documentation: PMH: Agreed; PSxH: Agreed Nursing Documentation-PMH Hx Hypertension: Yes Hx Diabetes: Yes Hx Gastrointestinal Problems: Yes Hx Neurological Problems: Yes - ETOH Hx Seizures: Yes Review of Systems All Other Systems: negative except mentioned in HPI Physical Exam Vital Signs Date Time Temp Pulse Resp B/P (MAP) Pulse Ox O2 Delivery O2 Flow Rate FiO2 11/13/19 06:11 98.6 82 18 145/90 (108) 99 Room Air General Appearance: well appearing, no apparent distress Head: normocephalic, atraumatic ENT: hearing grossly normal, normal voice Neck: full range of motion, supple Respiratory: no respiratory distress, speaking full sentences Musculoskeletal: other - Patient ambulates without difficulty Neurologic: alert, normal gait Psychiatric: mood/affect normal Skin: no rash Medical Decision Making Diagnostic Impression: Primary Impression: Osteoarthritis Qualified Codes: M17.0 - Bilateral primary osteoarthritis of knee ER Course 54-year-old male presents with bilateral knee arthritis most likely consistent with arthritis differential diagnosis includes bursitis, fracture patient is able to ambulate without difficulty doubt fracture will provide patient with a list of primary care clinics that he may get connected and find a new primary care doctor as well as a referral to orthopedics And was provided a cane Dispo home w/ return precautions Last Vital Signs Date Time Temp Pulse Resp B/P (MAP) Pulse Ox O2 Delivery O2 Flow Rate FiO2 11/13/19 06:11 98.6 82 18 145/90 (108) 99 Room Air Disposition: HOME, SELF-CARE Condition: Stable Scripts Naproxen* (NAPROSYN*) 250 Mg Tablet 250 MG ORAL TID PRN for For Pain, #20 TAB 0 Refills Prov: Finn Blackman MD 11/13/19 Referrals: [facility] Shukla [facility]. [facility] Patient Instructions: Arthritis, [id number], Knee Pain, [id number], Osteoarthritis Additional Instructions: The patient was provided with discharge instructions, notified to follow-up with a primary care doctor and or specialist in the next 24-48 hours, and to return to the ED if they have worsening of their symptoms. Please note that this report is being documented using DRAGON technology. This can lead to erroneous entry secondary to incorrect interpretation by the dictating instrument. Finn Blackman MD Nov 13, 2019 06:25
[2019-11-13 06:30] VITALS: BP 145/90
[2019-11-13] MEDS ORDERED: Acetaminophen 500mg (ES) tab ORAL ONE (06:30)
[2019-11-13] MEDS ORDERED: chlordiazePOXIDE 25mg Cap ORAL ONE (06:30)
--- NOTE | 2019-11-13 06:30 | NUR ---
ED Nurse Note: Pt cleared by health care Provider for discharge. DC instructions was given and explained to pt and verbalized understanding of teachings. All medical deviecs such as ID band removed. Pt is AAO x4, ambulatory and left with all personal belongings. Pt given cane for support with ambulation, pt able to ambulate with steady gait. Pt given orthopedic clinic information as requested.
== END 2019-11-13 06:30 | disposition home or self-care (01) ==
LOC: EMR 06:23
DX: M17.0 Bilateral primary osteoarthritis of knee (principal); I10 Essential (primary) hypertension; E11.9 Type 2 diabetes mellitus without complications; G40.909 Epilepsy, unspecified, not intractable, without status epilepticus; F10.10 Alcohol abuse, uncomplicated; Y90.8 Blood alcohol level of 240 mg/100 ml or more
CPT/HCPCS: 99282